=== PATIENT | male | born 1980 | race Caucasian/White ===

== ENCOUNTER 2017-05-08 09:58 | Emergency (ER) | payer MEDICAID ==
[~2017-05-08] VITALS: Ht 180.3 cm; Wt 92.3 kg
[2017-05-08 10:00] VITALS: BP 158/92
== END 2017-05-08 10:43 | disposition home or self-care (01) ==
LOC: ED 10:24
DX: B35.4 Tinea corporis (principal); F12.10 Cannabis abuse, uncomplicated
CPT/HCPCS: 99283

== ENCOUNTER 2018-03-27 14:27 | Emergency (ER) | payer MEDICAID ==
[~2018-03-27] VITALS: Ht 180.3 cm; Wt 85.2 kg
[2018-03-27 14:49] VITALS: BP 146/99
[2018-03-27] MEDS ORDERED: METH40TA3 PO (15:04)
[2018-03-27] MEDS ORDERED: FAMOTIDINE 20 MG/2 ML ONE (15:08)
[2018-03-27] MEDS ORDERED: ONDANSETRON 2MG/ML, 2ML ONE (15:08)
[2018-03-27] MEDS ORDERED: METOCLOPRAMIDE 5 MG/ML, 2ML ONE (15:11)
[2018-03-27] MEDS ORDERED: METOCLOPRAMIDE 5 MG/ML, 2ML IVPush ONE (15:30)
[2018-03-27] MEDS ORDERED: SODIUM CHLORIDE 0.9% 1,000ML IVBOLUS ONE (15:30)
[2018-03-27] MEDS ORDERED: SODIUM CHLORIDE FLUSH 10ML SYR IVF ONE (15:30)
[2018-03-27] MEDS ORDERED: FAMOTIDINE 20 MG/2 ML IVP ONE (15:30)
[2018-03-27 15:34] LABS: BASOPHILS # (AUTO) 0.03 x10^3/uL (0-0.1); BASOPHILS % (AUTO) 1 % (0-1); EOSINOPHILS # (AUTO) 0.01 x10^3/uL (0-0.4); EOSINOPHILS % (AUTO) 0 % (1-7); LYMPHOCYTES # (AUTO) 1.62 x10^3/uL (1-3.4); LYMPHOCYTES % (AUTO) 26 % (22-44); MD NO; MEAN CORPUSCULAR HGB CONC 34.2 g/dL (33.2-36.2); MEAN CORPUSCULAR VOLUME 90.8 fL (81-97); MEAN PLATELET VOLUME 8.6 fL (7.4-10.4); MONOCYTES # (AUTO) 0.36 x10^3/uL (0.2-0.8); MONOCYTES % (AUTO) 6 % (2-9); NEUTROPHILS # (AUTO) 4.18 x10^3/uL (1.8-6.8); NEUTROPHILS % (AUTO) 67 % (42-75); PLATELET COUNT 242 x10^3/uL (130-400); RED BLOOD COUNT 4.69 x10^6/uL (4.38-5.82); RED CELL DISTRIBUTION WIDTH 13.4 % (9.4-14.8)
[2018-03-27 15:45] LABS: ALANINE AMINOTRANSFERASE 27 U/L (12-78); ALBUMIN 4.4 g/dL (3.4-5.0); ANION GAP 10 mmol/L (5-15); CALCIUM 9.3 mg/dL (8.5-10.1); CHLORIDE 102 mmol/L (98-107)
[2018-03-27 15:46] LABS: ALKALINE PHOSPHATASE 60 U/L (45-117); BILIRUBIN,TOTAL 0.5 mg/dL (0.2-1.0); TOTAL PROTEIN 8.6 g/dL (6.4-8.2)
== END 2018-03-27 15:50 | disposition left against medical advice (07) ==
LOC: ED 15:30
DX: G43.A1 Cyclical vomiting, in migraine, intractable (principal); F12.10 Cannabis abuse, uncomplicated; R10.9 Unspecified abdominal pain; Z90.89 Acquired absence of other organs
CPT/HCPCS: 36415; 80053; 83690; 85025; 96374; 96375; 99284; J2765; J7030; S0028

== ENCOUNTER 2018-10-19 10:58 | Emergency (ER) | payer MEDICAID ==
[~2018-10-19] VITALS: Ht 180.3 cm; Wt 86.1 kg
[~2018-10-19 10:58] MED LIST: METH40TA3 PO
[2018-10-19 11:13] VITALS: BP 152/84
--- NOTE | 2018-10-19 12:11 | NUR ---
REPORT TO ALFREDO PALOMARES
== END 2018-10-19 13:45 | disposition home or self-care (01) ==
LOC: ED 13:00
DX: I45.81 Long QT syndrome (principal); F11.20 Opioid dependence, uncomplicated
CPT/HCPCS: 93005; 99283